=== PATIENT | male | born 1995 | race Two or more races ===

== ENCOUNTER 2022-02-04 08:00 | Outpatient (CLI) | payer OTHER ==
[2022-02-04 18:36] LABS: BILIRUBIN,URINE NEGATIVE (NEGATIVE); GLUCOSE, URINE (UA) NEGATIVE (NEGATIVE); KETONES,URINE (UA) NEGATIVE (NEGATIVE); LEUKOCYTE ESTERASE, URINE NEGATIVE (NEGATIVE); NITRITE,URINE NEGATIVE (NEGATIVE); OCCULT BLOOD,URINE NEGATIVE (NEGATIVE); PROTEIN,URINE NEGATIVE (NEGATIVE); UROBILINOGEN,URINE 0.2 (NORMAL) E.U./dL (NORMAL)
[2022-02-04 18:38] LABS: CLARITY,URINE CLEAR (CLEAR)
[2022-02-04 18:49] LABS: BACTERIA,URINE Rare /HPF (None Seen); RBC,URINE 0-5 /HPF (0-5); SQUAMOUS EPITHELIAL CELL,UR NONE SEEN (<= Few); WBC,URINE 0-3 /HPF (0-3)
== END 2022-02-04 23:59 | disposition home or self-care (01) ==
LOC: LAB.N 08:00
PROVIDERS: ATTEND Physician Assistant Medical
DX: M54.6 Pain in thoracic spine (principal)
CPT/HCPCS: 81001

== ENCOUNTER 2023-05-06 21:38 | Emergency (ER) | payer OTHER ==
[2023-05-06] MEDS ORDERED: lidocaine 1% 20 ML MDV SUBQ ONE (21:43)
[2023-05-06] MEDS ORDERED: LIDOCAINE 1%-EPI 1:100000 10 ML MDV SUBQ STA (21:43)
[2023-05-06] MEDS ORDERED: LIDOCAINE 1% 2 ML VIAL ONE (22:10)
[2023-05-06] MEDS ORDERED: LIDOCAINE 2%-EPI 1:100000 20 ML MDV ONE (22:11)
[2023-05-07 00:30] VITALS: BP 139/97
--- NOTE | 2023-05-07 00:45 | ED Physician Documentation ---
PD HPI SKIN - Stated complaint Stated Complaint: FOREHEAD LAC - Chief complaint Chief Complaint: Laceration - History obtained from History obtained from: Patient - Additional information Additional information: 27yM presents to the ED with midforehead laceration and head injury s/p being hit by hockey puck today. states he had some wooziness and vision blurring/photophobia/phonophobia. otherwise denies fnd. denies nausea, lightheadedness. PD PAST MEDICAL HISTORY - Past Medical History Past Medical History: No Cardiovascular: None Respiratory: None Neuro: None Endocrine/Autoimmune: None GI: None : None HEENT: None Psych: None Musculoskeletal: None Derm: None - Past Surgical History Past Surgical History: Yes Ortho: Other HEENT: Tonsil/Adenoidectomy - Present Medications Home Medications: Ambulatory Orders Medication Instructions Recorded Confirmed No Known Home Medications 05/06/23 05/06/23 - Allergies Allergies/Adverse Reactions: Allergies Allergy/AdvReac Type Severity Reaction Status Date / Time No Known Drug Allergies Allergy Verified 05/06/23 22:00 - Social History Does the pt smoke?: No Smoking Status: Never smoker Does the pt drink ETOH?: Yes Does the pt have substance abuse?: No - Immunizations Immunizations are current?: Yes - POLST Patient has POLST: No PD ED PE NORMAL - Vitals Vital signs reviewed: Yes - General General: Alert and oriented X 3, No acute distress, Well developed/nourished - HEENT HEENT: Atraumatic, PERRL, EOMI, Other (2cm laceration midforehead, hemostatic) - Neck Neck: No bony TTP - Derm Derm: Normal color, Warm and dry Results - Vitals Vitals: Vital Signs - 24 hr 05/06/23 05/07/23 21:54 00:26 Temperature 36.9 C 37.1 C Heart Rate 83 65 Respiratory 17 18 Rate Blood Pressure 142/95 H 139/97 H O2 Saturation 98 97 Oxygen O2 Source Room air Procedures - Laceration (location) Face Length in cm: 2 Wound type: Irregular, Into subcut fat Neurovascular status: Sensory intact, Motor intact, Vascular intact Anesthesia: Lidocaine 2% with epi Wound preparation: Irrigated copiously NS Skin layer closure: Nylon, Interrupted, Size #-0 - enter number (6), Sutures - enter # (4) Other: Patient tolerated well, No complications, Neurovascular intact, Dressing applied, Tetanus UTD PD Medical Decision Making - ED course ED course: 27yM presents with dizziness and vision blurring after hockey puck hit him. also with midforehead laceration which was repaired. no FND and neuro exam was normal. discussed concussion precautions. patient will have sutures removed in 3-5 days. Departure - Departure Disposition: 01 Home, Self Care Clinical Impression: Laceration of forehead Condition: Stable Instructions: ED Laceration All, ED Head Injury Closed Comments: You were seen in the emergency department for Laceration repair and evaluation after closed head injury.You will need to get your stitches taken out in 3 to 5 days. You also have some signs of concussion and should avoid screens like TV and prolonged computer or smartphone use and stimulants/chemicals including caffeine, alcohol and other recreational drugs for the next 48 to 72 hours. Please follow-up with your primary care provider and return to the emergency department if you have any new or worsening symptoms or other concerns. Forms: PCP List, Activity restrictions
[2023-05-07 01:20] VITALS: O2SAT 100
== END 2023-05-07 01:08 | disposition home or self-care (01) ==
LOC: ED 21:38
DX: S01.81XA Laceration without foreign body of other part of head, initial encounter (principal); W20.8XXA Other cause of strike by thrown, projected or falling object, initial encounter
CPT/HCPCS: 12011; 99282